=== PATIENT | male | born 1975 | race Caucasian/White ===

== ENCOUNTER 2017-07-07 05:08 | Emergency (ER) | payer SELFPAY ==
[2017-07-07 05:56] LABS: PTT 24.4 SEC (22.9-36.1); Prothrombin Time 13.3 SEC (12.0-14.7)
[2017-07-07 06:00] LABS: #Basophils 0.1 thou/uL (0.0-0.2); #Eosinphils 0.1 thou/uL (0.0-0.7); #Lymphocytes 1.2 thou/uL (1.20-3.40); #Monocytes 0.5 thou/uL (0.11-0.59); #Neutrophils 6.3 thou/uL (1.40-6.50); %Eosinophils 0.8 % (0.0-10.0); %Lymphocytes 14.7 % (21.0-51.0); %Monocytes 5.9 % (0.0-10.0); %Neutrophils 77.6 % (42.0-75.0); Hemoglobin 14.1 g/dL (14.0-18.0); Mean Corpuscular HGB CONC 35.5 g/dL (32.0-36.0); Mean Corpuscular Hemoglobin 31.4 pg (27.0-31.0); Mean Corpuscular Volume 88.3 fl (80.0-94.0); Mean Platelet Volume 9.7 fL (7.4-10.4); Platelet Count 181 thou/uL (130-400); RBC Distribution Width 11.1 % (11.5-14.5); White Blood Cell (WBC) Count 8.1 thou/uL (4.8-10.8)
[2017-07-07 06:02] LABS: Bilirubin Small (Negative); Blood, Urine Negative (Negative); Clarity Clear (Clear); Glucose, Urine (Dipstick) Negative (Negative); Icto Negative (Negative); Leukocyte Negative (Negative); Nitrite Negative (Negative); Protein, Urine (Dipstick) Trace mg/dL (Neg-Trace); Specific Gravity, Urine 1.025 (1.005-1.030); Urobilinogen 0.2 mg/dL (0.2-1.0); pH, Urine 5.5 (5.0-9.0)
[2017-07-07 06:03] LABS: Amphetamine Not Detected (NotDetected); Barbiturates Screen Not Detected (NotDetected); Benzodiazepine Screen Not Detected (NotDetected); Cocaine Metabolite Screen Not Detected (NotDetected); Medtox Control Line Valid? VALID (VALID); Methadone Not Detected (NotDetected); Methamphetamine Not Detected (NotDetected); Opiate Screen Not Detected (NotDetected); Oxycodone Screen Not Detected (NotDetected); Phencyclidine (PCP) Not Detected (NotDetected); THC/Cannabinoid Screen Not Detected (NotDetected); Tricyclic Screen Not Detected (NotDetected)
[2017-07-07 06:06] LABS: ALT (SGPT) 89 U/L (8-55); AST (SGOT) 61 U/L (5-34); Albumin 4.3 g/dL (3.5-5.0); Alkaline Phosphatase 31 U/L (40-150); Anion Gap 15 mmol/L (10-20); BUN (Urea Nitrogen) 20 mg/dL (8.9-20.6); Bilirubin, Total 0.5 mg/dL (0.2-1.2); Calc. Creatinine Clearance 0 mL/min (70-130); Calcium 8.9 mg/dL (7.8-10.44); Carbon Dioxide 25 mmol/L (22-29); Chloride 101 mmol/L (98-107); Estimated GFR-MDRD 76; Globulin 3.3 g/dL (2.4-3.5); Glucose 127 mg/dL (70-105); Potassium 3.7 mmol/L (3.5-5.1); Protein, Total 7.6 g/dL (6.0-8.3); Sodium 137 mmol/L (136-145)
[2017-07-07 06:13] LABS: CKMB 4.8 ng/mL (0-6.6)
--- NOTE | 2017-07-07 08:39 | RAD ---
PORTABLE CHEST: HISTORY: Chest pain. FINDINGS: Lungs are clear. Heart and mediastinum appear normal. No evidence of vascular congestion or edema. IMPRESSION: Unremarkable portable chest. POS: [facility]
== END 2017-07-07 06:58 | disposition home or self-care (01) ==
LOC: MADERS 05:08
DX: F43.0 Acute stress reaction (principal); F41.9 Anxiety disorder, unspecified
CPT/HCPCS: 36415; 71010; 80053; 80306; 81003; 82553; 84484; 85025; 85610; 85730; 93005; 94760

== ENCOUNTER 2017-07-31 11:33 | Emergency (ER) | payer SELFPAY ==
--- NOTE | 2017-07-31 12:16 | RAD ---
THREE VIEWS RIGHT FOOT: INDICATION: Pain. COMPARISON: No prior comparison. FINDINGS: The Lisfranc joint is maintained. There is no fracture or dislocation. Small enthesophyte is prese nt at the plantar aspect of the calcaneus. There is a subcentimeter sclerotic focus involving the t uft of the great toe most likely related to a bone island. IMPRESSION: 1. No acute osseous abnormality. 2. Probable bone island at the tuft of the great toe distal phalanx. POS: [facility]
== END 2017-07-31 12:05 | disposition home or self-care (01) ==
LOC: MADERS 11:33
DX: S93.601A Unspecified sprain of right foot, initial encounter (principal); S90.31XA Contusion of right foot, initial encounter; F41.9 Anxiety disorder, unspecified; X50.9XXA Other and unspecified overexertion or strenuous movements or postures, initial encounter

== ENCOUNTER 2017-08-23 18:06 | Emergency (ER) | payer SELFPAY ==
[2017-08-23] MEDS ORDERED: Ibuprofen 800 MG TAB ONE (18:55)
[2017-08-23] MEDS ORDERED: Dexamethasone 4 MG TAB ONE (18:55)
== END 2017-08-23 19:33 | disposition home or self-care (01) ==
LOC: MADERS 18:06
DX: S66.911A Strain of unspecified muscle, fascia and tendon at wrist and hand level, right hand, initial encounter (principal); F41.9 Anxiety disorder, unspecified; F17.220 Nicotine dependence, chewing tobacco, uncomplicated; X58.XXXA Exposure to other specified factors, initial encounter
CPT/HCPCS: 99283; J8540

== ENCOUNTER 2017-09-17 13:51 | Emergency (ER) | payer BC, SELFPAY ==
[2017-09-17] MEDS ORDERED: Ketorolac Tromethamine 30 MG/ML VIAL ONE (14:19)
== END 2017-09-17 14:40 | disposition home or self-care (01) ==
LOC: MADERS 13:51
DX: M54.5 Low back pain (principal); F41.9 Anxiety disorder, unspecified; F17.220 Nicotine dependence, chewing tobacco, uncomplicated; X50.0XXA Overexertion from strenuous movement or load, initial encounter; Y92.69 Other specified industrial and construction area as the place of occurrence of the external cause; Y99.0 Civilian activity done for income or pay
CPT/HCPCS: 96372; J1885

== ENCOUNTER 2017-12-28 10:06 | Emergency (ER) | payer BC, SELFPAY | END 2017-12-28 11:11 | disposition home or self-care (01) | LOC: MADERS 10:06 | DX: F43.0 Acute stress reaction (principal); F41.9 Anxiety disorder, unspecified; F17.220 Nicotine dependence, chewing tobacco, uncomplicated | CPT/HCPCS: 99284 ==

== ENCOUNTER 2018-01-08 15:32 | Emergency (ER) | payer SELFPAY ==
[2018-01-08] MEDS ORDERED: traMADol HCl 50 MG TAB ONE (16:28)
== END 2018-01-08 16:40 | disposition home or self-care (01) ==
LOC: MADERS 15:32
DX: S40.022A Contusion of left upper arm, initial encounter (principal); F41.9 Anxiety disorder, unspecified; F17.220 Nicotine dependence, chewing tobacco, uncomplicated; Z79.899 Other long term (current) drug therapy; X58.XXXA Exposure to other specified factors, initial encounter
CPT/HCPCS: 99283

== ENCOUNTER 2019-05-06 21:25 | Emergency (ER) | payer SELFPAY ==
--- NOTE | 2019-05-06 21:50 | RAD ---
EXAM: 3 views of the left ankle HISTORY: Left ankle pain after falling in a hole 4 days ago COMPARISON: None FINDINGS: 3 views of the left ankle shows no evidence of acute fracture or dislocation. Mild diffuse soft tissue swelling is seen. No degenerative changes are present. IMPRESSION: No evidence of acute osseous abnormality.
[2019-05-06] MEDS ORDERED: HYDROcodone/Acetaminophen 5/325 mg Tablet ONE (22:04)
== END 2019-05-06 22:10 | disposition home or self-care (01) ==
LOC: MADERS 21:25
DX: S80.12XA Contusion of left lower leg, initial encounter (principal); F41.9 Anxiety disorder, unspecified; F17.220 Nicotine dependence, chewing tobacco, uncomplicated; W18.42XA Slipping, tripping and stumbling without falling due to stepping into hole or opening, initial encounter

== ENCOUNTER 2019-06-05 14:53 | Emergency (ER) | payer SELFPAY | END 2019-06-05 15:15 | disposition home or self-care (01) | LOC: MADERS 14:53 | DX: S50.311A Abrasion of right elbow, initial encounter (principal); S60.511A Abrasion of right hand, initial encounter; F41.9 Anxiety disorder, unspecified; F17.220 Nicotine dependence, chewing tobacco, uncomplicated; V00.131A Fall from skateboard, initial encounter | CPT/HCPCS: 99281 ==

== ENCOUNTER 2020-02-01 08:19 | Emergency (ER) | payer SELFPAY ==
[2020-02-01] MEDS ORDERED: Bupivacaine PF 0.5% 30 ML VIAL ONE (08:45)
--- NOTE | 2020-02-01 09:13 | RAD ---
Radiograph right fifth digit 3 views: DATE: 02/01/2020 Time: 8:49 AM HISTORY: 44-year-old male status post injury FINDINGS: There is dorsal dislocation of the fifth middle phalanx relative to the head of the proximal phalanx. Tiny calcification in soft tissues adjacent to head of proximal phalanx may represent chip fracture fragment. On the lateral view, there is a larger 4 mm ossific density abutting the ventral s urface of the fifth metacarpal head and neck which may represent another fracture fragment. There is a linear lucency across the dorsal osteophyte at the base of the distal phalanx which may re present a nondisplaced fracture. Soft tissue swelling of digit. IMPRESSION: 1. Acute, traumatic fracture-dislocation of fifth proximal interphalangeal joint. 2. Possible nondisplaced fracture at posterior base of fifth distal phalanx.
--- NOTE | 2020-02-01 09:15 | RAD ---
Radiograph right hand 3 views: DATE: 02/01/2020 Time: 8:49 AM HISTORY: 44-year-old male status post injury FINDINGS: There is dorsal dislocation of the fifth middle phalanx relative to the head of the proximal phalanx. Tiny calcification in soft tissues adjacent to head of proximal phalanx may represent chip fracture fragment. On the lateral view, there is a larger 4 mm ossific density abutting the ventral s urface of the fifth metacarpal head and neck which may represent another fracture fragment. There is a linear lucency across the dorsal osteophyte at the base of the distal phalanx which may re present a nondisplaced fracture. Soft tissue swelling of digit. Tiny calcification abutting the volar surface of base of fourth middle phalanx. Uncertain whether this represents acute tiny avulsion fracture or chronic calcification. Old, healed bowing deformity of fifth metacarpal diaphysis. No acute fracture or dislocation involving rest of the hand. IMPRESSION: 1. Acute, traumatic fracture-dislocation of fifth proximal interphalangeal joint. 2. Possible nondisplaced fracture at posterior base of fifth distal phalanx. 3. Old, healed boxer's fracture deformity of fifth metacarpal. 4. Questionable finding at fourth proximal interphalangeal joint.
--- NOTE | 2020-02-01 09:18 | RAD ---
Radiograph right fifth digit 2 views: DATE: 02/01/2020 Time: 9:14 AM HISTORY: First reduction attempt for fracture dislocation. COMPARISON: 02/01/2020 8:49 AM FINDINGS: The previously demonstrated complete dorsal dislocation of the middle phalanx relative to proximal ph alanx has slightly improved, now approximately 25-50% dorsally displaced. Now, osseous defect is demonstrated at the volar base of middle phalanx indicating that that is the donor site for the displ aced fracture fragment which currently resides abutting the volar surface of the proximal phalanx head and neck. IMPRESSION: 1. Interval improvement in alignment of the dislocated fifth proximal interphalangeal joint, currentl y subluxed. 2. Displaced avulsion fracture at volar base of fifth middle phalanx. 3. Nondisplaced avulsion fracture involving dorsal osteophyte at fifth distal interphalangeal joint.
== END 2020-02-01 09:20 | disposition home or self-care (01) ==
LOC: MADERS 08:19
DX: S62.616A Displaced fracture of proximal phalanx of right little finger, initial encounter for closed fracture (principal); F41.9 Anxiety disorder, unspecified; F17.220 Nicotine dependence, chewing tobacco, uncomplicated; X58.XXXA Exposure to other specified factors, initial encounter; Y93.51 Activity, roller skating (inline) and skateboarding
CPT/HCPCS: 26770; S0020

== ENCOUNTER 2020-07-27 19:44 | Emergency (ER) | payer SELFPAY | END 2020-07-27 20:19 | disposition left against medical advice (07) | LOC: MADERS 19:44 | DX: Z53.21 Procedure and treatment not carried out due to patient leaving prior to being seen by health care provider (principal) ==

== ENCOUNTER 2021-11-04 18:03 | Emergency (ER) | payer SELFPAY ==
[2021-11-04] MEDS ORDERED: Ondansetron PF 4 MG/2 ML Vial ONE (18:26)
[2021-11-04] MEDS ORDERED: Sodium Chloride 0.9% 1,000 ML ONE ×2 (18:26→19:35)
[2021-11-04 18:46] LABS: ALT (SGPT) 135 U/L (8-55); AST (SGOT) 67 U/L (5-34); Albumin 4.6 g/dL (3.5-5.0); Alkaline Phosphatase 37 U/L (40-110); Anion Gap 19 mmol/L (10-20); BUN (Urea Nitrogen) 20 mg/dL (8.9-20.6); Calc. Creatinine Clearance 0 mL/min (70-130); Calcium 9.5 mg/dL (7.8-10.44); Carbon Dioxide 20 mmol/L (22-29); Chloride 104 mmol/L (98-107); Glucose 126 mg/dL (70-105); Lipase 19 U/L (8-78); Magnesium 1.7 mg/dL (1.6-2.6); Potassium 4.5 mmol/L (3.5-5.1); Protein, Total 8.6 g/dL (6.0-8.3); Sodium 138 mmol/L (136-145)
[2021-11-04 18:49] LABS: Band 4 % (5-11); Eosinophils 1 % (0-10); Hemoglobin 16.4 g/dL (14.0-18.0); Lymphocytes 13 % (21-51); MDiff Complete? YES; Mean Corpuscular HGB CONC 33.2 g/dL (32.0-36.0); Mean Corpuscular Hemoglobin 29.8 pg (27.0-31.0); Mean Corpuscular Volume 89.9 fL (78.0-98.0); Mean Platelet Volume 9.1 fL (7.4-10.4); Monocytes 2 % (0-10); Neutrophil 80 % (42-75); Platelet Count 226 thou/uL (130-400); Platelet Morphology Comment Appears Adequate; RBC Distribution Width 11.3 % (11.5-14.5); Red Blood Cell (RBC) Count 5.51 mill/uL (4.70-6.10); White Blood Cell (WBC) Count 11.2 thou/uL (4.8-10.8)
[2021-11-04 19:18] LABS: Bilirubin, Total 0.6 mg/dL (0.2-1.2)
[2021-11-04] MEDS ORDERED: Loperamide HCl 2 MG CAP ONE (19:35)
[2021-11-04] MEDS ORDERED: Metoclopramide HCl 10 MG/2 ML VIAL ONE (20:24)
[2021-11-04] MEDS ORDERED: Ketorolac Tromethamine 30 MG/ML VIAL ONE (21:43)
[2021-11-04] MEDS ORDERED: Promethazine HCl 25 MG/ML VIAL ONE (21:43)
== END 2021-11-04 23:13 | disposition home or self-care (01) ==
LOC: MADERS 18:03
DX: K52.9 Noninfective gastroenteritis and colitis, unspecified (principal); Z87.891 Personal history of nicotine dependence
CPT/HCPCS: 74022; 80053; 83605; 83690; 83735; 85025; 87804; 96374; 96375; J1885; J2405; J2550; J2765; J7050

== ENCOUNTER 2022-04-18 22:03 | Emergency (ER) | payer OTHER, SELFPAY ==
[2022-04-18] MEDS ORDERED: Lidocaine 1% w/Epinephrine 1:100K 20 ML VIAL ONE (22:34)
[2022-04-18] MEDS ORDERED: Ketorolac Tromethamine 30 MG/ML VIAL ONE (23:22)
== END 2022-04-18 23:45 ==
LOC: MADERS 22:03
DX: S43.401A Unspecified sprain of right shoulder joint, initial encounter (principal); S01.512A Laceration without foreign body of oral cavity, initial encounter; S09.90XA Unspecified injury of head, initial encounter; Z87.891 Personal history of nicotine dependence; Z79.899 Other long term (current) drug therapy; Y09 Assault by unspecified means
CPT/HCPCS: 70450; 96372; J1885